=== PATIENT | male | born 1960 | race Caucasian/White ===

== ENCOUNTER 2019-09-03 15:22 | Emergency (ER) | payer MEDICARE, MEDICAID ==
[~2019-09-03] VITALS: Ht 177.8 cm; Wt 103.0 kg
== END 2019-09-03 16:13 | disposition home or self-care (01) ==
LOC: ER 15:23
DX: S92.515A Nondisplaced fracture of proximal phalanx of left lesser toe(s), initial encounter for closed fracture (principal); Z88.1 Allergy status to other antibiotic agents; W22.8XXA Striking against or struck by other objects, initial encounter; Y93.01 Activity, walking, marching and hiking; Y92.89 Other specified places as the place of occurrence of the external cause; Y99.9 Unspecified external cause status
CPT/HCPCS: 73660; 99283

== ENCOUNTER 2020-01-20 14:39 | Emergency (ER) | payer MEDICARE, MEDICAID | END 2020-01-20 17:12 | disposition home or self-care (01) | LOC: ER 14:39 | DX: J06.9 Acute upper respiratory infection, unspecified (principal); R05 Cough; Z88.1 Allergy status to other antibiotic agents | CPT/HCPCS: 99281 ==

== ENCOUNTER 2022-05-18 02:48 | Inpatient (IN) | payer MEDICARE, MEDICAID ==
[~2022-05-18] VITALS: Ht 180.3 cm; Wt 74.3 kg
[~2022-05-18 02:48] MED LIST: CARB200T8 PO; CHOL20002 PO; DABI75CA3 PO; DOCU-148 PO; FLUO-1 PO; ZIPR80CA10 PO
[2022-05-18] MEDS ORDERED: acetaminophen 325mg tablet PO PRN ×2 (09:30)
[2022-05-18] MEDS ORDERED: mag hydrox/Alum hydrox/simeth 30ml oral suspension PO PRN (09:30)
[2022-05-18] MEDS ORDERED: loperamide 2mg capsule PO PRN (09:30)
[2022-05-18] MEDS ORDERED: magnesium hydroxide 30ml (MOM) UD suspension PO PRN (09:30)
--- NOTE | 2022-05-18 09:57 | NUR ---
Admission note: Pt admitted today on 5150 for DTS/GD from [facility] at 0911. Pt endorses SI daily with a plan to crash his vehicle. Pt hasn't eaten in 24 hours or slept in 32 hours. Pt has history of Bipolar. Pt states he has weaned himself off of his medications.
[2022-05-18 10:11] VITALS: BP 161/89
[2022-05-18] MEDS ORDERED: NO HOME MEDS (12:28)
[2022-05-18 19:10] VITALS: BP 136/76
--- NOTE | 2022-05-19 05:12 | NUR ---
Nursing Progress Note Problem: Pt admitted today on 5150 for DTS/GD from [facility] at 0911. Pt endorses SI daily with a plan to crash his vehicle. Pt hasn't eaten in 24 hours or slept in 32 hours. Patient has a history of bipolar. Patient states he has weaned himself off his medications. Intervention: Maintained a safe and supportive environment, administered scheduled and PRN medications. Provided clear and simple instructions, encouraged going to group, provided active listening and positive encouragement, encouraged participation on the unit, provided redirection and clear boundaries. Response: Patient was received sitting in chair in room talking to himself. Nurse took patients vitals and patient asked how long he was going to be here. Patient got up to participate in snack and returned to room. Patient later got up asking for pen and paper stating he needed something to do tonight since he will be up for the next 18 hrs. Patient began walking around unit holding hands talking with another patient until disappearing back into his room. Plan: Pt. requires crisis stabilization. pt. continues to require a safe and supportive environment
[2022-05-19 08:00] VITALS: BP 115/68
[2022-05-19 09:04] LABS: CHOL/HDL RATIO 4.2 (0.00-4.99); CHOLESTEROL 169 MG/DL (0-200); HDL CHOLESTEROL 40 MG/DL (35-60); LDL CHOLESTEROL 104 MG/DL (50-100); TRIGLYCERIDES 104 MG/DL (20-135)
[2022-05-19 09:34] LABS: HEMOGLOBIN A1C 5.4 % (4.5-6.2)
--- NOTE | 2022-05-19 13:42 | NUR ---
PSYCHOSOCIAL ASSESSMENT Pt. is a 62 year old male who was placed on a 5150 by [facility] for DTS and brought to the [facility] ED. The 5150 indicated that his therapist recommended he check in because he had suicidal thoughts with a plan to crash his vehicle if he didn't get help. Robert has a history of Bipolar D/O and has been off his meds since March 18, 2022. He reported that his psychiatrist at [facility] recommended he go off medications. Since stopping meds he has lost significant weight and isn't sleeping well. He presented as hyper verbal, minimal eye contact, friendly, respectful, and possible grandiose delusions. Pt reported today that he lives with his ex- and her son Alber who is 30 years old. He reported that he was to her for over 20 years. He has been staying on her couch but he does not think he can go back to her home. She has become fearful of him after his recent episode. He reported that they are going to go their separate ways at this point so he not sure where he will go after [facility]. Pt. does not want her to be contacted at this point. Pt. reported that he has attempted suicide in the past, the most recent time was 1.5 years ago after an argument with Rosita. When asked today if he was suicidal he stated, I have a plan now. I am going to write a memoir and at the end of the book I will add a sentence about where my body is. Pt. has a therapist (Inna Don) in the community and goes to [facility] for outpatient mental health treatment. He confirmed he has been off his medications for a while. MSE Pt. appeared a bit disheveled in hospital scrubs. His demeanor is pleasant and compliant. His thought content appeared a bit grandiose and this thought process was circumstantial but he was amenable to redirection. He was alert and oriented X 4. His demeanor would become a bit agitated when describing what led him to come into [facility] as he was describing how he was feeling very irritable. He would move back to being more pleasant and compliant when he was done. He also showed insight into his mental health during these explanations. An example of this was when he stated, I threw things because when I throw things it allows me to release the tension in me and return to a more calm state. He demonstrated rapid pressured speech. Nicole Roberts, CANCER REGISTRY COORDINATOR
--- NOTE | 2022-05-19 16:45 | NUR ---
Nursing Progress Note Problem: Pt admitted on 5150 for DTS/GD from [facility] at 0911. Pt endorses SI daily with a plan to crash his vehicle. Patient is irritable due to not getting on his previous medication. Patient has not slept except for 2.5 hours yesterday morning. Intervention: Maintained a safe and supportive environment, administered scheduled and PRN medications. Provided clear and simple instructions, encouraged going to group, provided active listening and positive encouragement, encouraged participation on the unit, provided redirection and clear boundaries. Response: Patient was sitting in his room not socializing with peers. RN sat down and asked patient how he was doing. Patient got upset and said "I'm irritated because I have had to repeat my story twice today already. RN advised patient that he doesn't have to tell her his story and RN was asking how he was doing. Patient relaxed and.....started telling RN his story. Patient did speak with Dr Aguilar this morning and patient expects to be on his medications by tonight. Patient was pleasant by the time RN left. Plan: Pt. requires crisis stabilization. pt. continues to require a safe and supportive environment. And pharmacological intervention.
[2022-05-19 19:46] VITALS: BP 132/92
[2022-05-19] MEDS ORDERED: temazepam 15mg capsule PO ONE (20:05)
[2022-05-19] MEDS ORDERED: ziprasidone 20mg capsule PO ONE (21:20)
[2022-05-19] MEDS ORDERED: carBAMazepine 100mg chewable tablet PO ONE (21:20)
--- NOTE | 2022-05-20 01:09 | NUR ---
Nursing Progress Note Problem: Pt admitted on 5150 for DTS/GD from [facility] at 0911. Pt endorses SI daily with a plan to crash his vehicle. Patient is irritable due to not getting on his previous medication. Patient has not slept except for 2.5 hours yesterday morning. Intervention: Maintained a safe and supportive environment, administered scheduled and PRN medications. Provided clear and simple instructions, encouraged going to group, provided active listening and positive encouragement, encouraged participation on the unit, provided redirection and clear boundaries. Response: Pt in room at shift change. The pt had Trazodone listed as an evening med, to which the pt stated that he doesn't take Trazodone due to the side effects. Restoril was then ordered for the pt , to which the pt stated that he wouldn't take Restoril due to the side effects such as amnesia listed on [email or web address]. the pt then stated that he was going to write a book about his life to get back at his mother. The pt reports that this is better then killing her and this is how he will get his revenge. The pt then stated that his step dad worked in [employer] and he would make an "exclusive " book available on [employer] to shame them all, as it was his life mission to hurt his mother and ruin her life as much as she had hurt his. The pt eventually calmed down and an order for Geodon and Tegretol were available, which the pt reports to have taken earlier before he had quit taking his meds. The pt then combined pacing in the wade and sitting in a chair in his room for most of the night. Plan: Pt. requires crisis stabilization. pt. continues to require a safe and supportive environment. And pharmacological intervention.
[2022-05-20] MEDS: ziprasidone 20mg capsule PO SCH ×2 (08:10→20:05)
[2022-05-20] MEDS: carBAMazepine 100mg chewable tablet PO SCH ×2 (08:11→20:06)
[2022-05-20 08:25] VITALS: BP 112/78
--- NOTE | 2022-05-20 17:39 | NUR ---
Nursing Progress Note Problem: Pt admitted on 5150 for DTS/GD from [facility] at 0911. Pt endorses SI daily with a plan to crash his vehicle. Patient is irritable due to not getting on his previous medication. Patient has not slept except for 2.5 hours yesterday morning. Intervention: Maintained a safe and supportive environment, administered scheduled and PRN medications. Provided clear and simple instructions, encouraged going to group, provided active listening and positive encouragement, encouraged participation on the unit, provided redirection and clear boundaries. Response: Pt sleeping at change of shift. Pt isolates to room either in bed or sitting in his chair. Pt complains of R finger pain issues. PT states he drops things with that hand. Pt explains he punches lots of things with this hand and probably has chronic injury. Pt denied wanting tylenol for this. Plan: Pt. requires crisis stabilization. pt. continues to require a safe and supportive environment. And pharmacological intervention.
[2022-05-20 19:30] VITALS: BP 115/83
--- NOTE | 2022-05-21 00:49 | NUR ---
Nursing Progress Note Problem: Pt admitted on 5150 for DTS/GD from [facility] at 0911. Pt endorses SI daily with a plan to crash his vehicle. Patient is irritable due to not getting on his previous medication. Patient has not slept except for 2.5 hours yesterday morning. Intervention: Maintained a safe and supportive environment, administered scheduled and PRN medications. Provided clear and simple instructions, encouraged going to group, provided active listening and positive encouragement, encouraged participation on the unit, provided redirection and clear boundaries. Response: Pt was sitting in chair writing at shift change. Pt reports that he is able to sleep now that he has his meds. Pt still working on his book about his mother. 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 Pt ate snack at snack time by himself in community room. Pt took evening meds w/o complications. Pt stayed up for a short amount of time and went to sleep. Plan: Pt. requires crisis stabilization. pt. continues to require a safe and supportive environment. And pharmacological intervention.
[2022-05-21] MEDS: carBAMazepine 100mg chewable tablet PO SCH ×2 (07:54→20:02)
[2022-05-21] MEDS: ziprasidone 20mg capsule PO SCH ×2 (07:54→20:02)
[2022-05-21 08:00] VITALS: BP 115/74
--- NOTE | 2022-05-21 14:26 | NUR ---
Nursing Progress Note Problem: Pt admitted on 5150 for DTS/GD from [facility] at 0911. Pt endorses SI daily with a plan to crash his vehicle. Pt states he wants to kill his mother. Patient stopped taking medication. Intervention: Maintained a safe and supportive environment, administered scheduled and PRN medications. Provided clear and simple instructions, encouraged going to group, provided active listening and positive encouragement, encouraged participation on the unit, provided redirection and clear boundaries. Response: Received Pt in bed resting w/o distress at change of shift. Pt woke and cooperative with vitals meds and AM assessments. Pt ate meals well and seen in halls walking at times. Pleasant and cooperative in conversation. He reports not feeling violent toward mother anymore and still angry and wants to write a book about what she did. Pt seems to be handling news that is leaving with intent to focus on God and other supports. He is looking forward to getting back to buddhism where he has supports. Pt calm and isolative to room mostly, but interactive when engaged. Plan: Pt. requires crisis stabilization. pt. continues to require a safe and supportive environment. And pharmacological intervention.
[2022-05-21 19:44] VITALS: BP 147/78
--- NOTE | 2022-05-21 22:47 | NUR ---
Nursing Progress Note Problem: Pt admitted on 5150 for DTS/GD from [facility] at 0911. Pt endorses SI daily with a plan to crash his vehicle. Pt states he wants to kill his mother. Patient stopped taking medication. Intervention: Maintained a safe and supportive environment, administered scheduled and PRN medications. Provided clear and simple instructions, encouraged going to group, provided active listening and positive encouragement, encouraged participation on the unit, provided redirection and clear boundaries. Response: Received Pt in his room talking with his roommate. Pt remains pleasant to speak with and spoke of understanding that he can be scary to be around when angry. Pt did some writing, took HS meds and had snack. Pt read in room and went to sleep. Pt is glad to be here and getting help. Pt denies SI and HI. Plan: Pt. requires crisis stabilization. pt. continues to require a safe and supportive environment. And pharmacological intervention.
--- NOTE | 2022-05-22 07:16 | NUR ---
Initial: Pt admitted w/ bipolar disorder per EMR. Currently on Regular diet w/ mostly 100% intake of meals meeting needs at this time. [facility] 05/20 w/ PRN bowel care available. No nutrition intervention implemented at this time, will continue to monitor. Recs: 1. Continue Regular diet as tolerated 2. Bowel care per rx 3. weekly wts Addendum: 05/22/22 at [address] Amended: Links added.
[2022-05-22 08:00] VITALS: BP 117/64
[2022-05-22] MEDS: ziprasidone 20mg capsule PO SCH ×2 (08:05→20:16)
[2022-05-22] MEDS: carBAMazepine 100mg chewable tablet PO SCH ×2 (08:06→20:17)
--- NOTE | 2022-05-22 14:34 | NUR ---
[address]
--- NOTE | 2022-05-22 18:00 | NUR ---
Nursing Progress Note Problem: Pt admitted on 05/18/22 to [facility], for a 5150 for DTS/GD from [facility]. Pt endorses SI daily with a plan to crash his vehicle. Patient is irritable due to not getting back on his previous medication regime. Patient has a history of Bipolar, and has weaned himself off of all of his prescribed medications. Interventions: Patient was received while sitting in the Community Room coloring pictures with peers. Patient is very talkative and appears very comfortable in sharing stories with the peers who are coloring with him. Patient took medications without hesitation, and reported that he had been off his medications for quite some time before coming here. He reported [employer] came to his home and he states he was already getting ready to go to [facility] to check in as he and his S.O. were having a heated discussion. Patient denies SI, and reports he did make an attempt at Suicide a few years back, but for right now I wouldnt think of it. Patient made no mention about the reported anger he has towards his mother. Response: Patient has been calm and pleasant today. Denies SI and reports he has no plan. Patient has been very interactive with his peers, and talkative with this technical proposal writer. Patient attended and participated in the Group Meeting today. Patient has taken brief rest periods in his room that are approximately 15 minutes long. Plan: Pt. requires crisis stabilization. Patient continues to require a safe and supportive environment. Patient requires medication adjustments as determined by his MD.
[2022-05-22 20:00] VITALS: BP 162/80
--- NOTE | 2022-05-23 03:18 | NUR ---
Nursing Progress Note Problem: Pt admitted on 5150 for DTS/GD from [facility] at 0911. Pt endorses SI daily with a plan to crash his vehicle. Pt states he wants to kill his mother. Patient stopped taking medication. Intervention: Maintained a safe and supportive environment, administered scheduled and PRN medications. Provided clear and simple instructions, encouraged going to group, provided active listening and positive encouragement, encouraged participation on the unit, provided redirection and clear boundaries. Response: Pt was in his room at change of shift. Pt denies si/hi. Pt reports he can't sleep but doesnt want prns because 'trazodone doesnt work for him and other medicines tried cause amnesia" Pt is pleasant cooperative and seem to get along well with peer.s. Pt spent time working on notes, had a snack and did not want sleeping meds despite encouragement and education provided by staff. Pt requested a shower late at night and took one. Pt takes short naps in bed but is not sleeping. Plan: Pt. requires crisis stabilization. pt. continues to require a safe and supportive environment. And pharmacological intervention.
[2022-05-23 08:00] VITALS: BP 138/66
[2022-05-23] MEDS ORDERED: ziprasidone 20mg capsule PO SCH (08:00)
[2022-05-23] MEDS: ziprasidone 20mg capsule PO SCH ×2 (08:41→21:11)
[2022-05-23] MEDS: carBAMazepine 100mg chewable tablet PO SCH ×2 (08:41→20:11)
--- NOTE | 2022-05-23 16:58 | NUR ---
Nursing Progress Note Problem: Pt admitted on 05/18/22 to [facility], for a 5150 for DTS/GD from [facility]. Pt endorses SI daily with a plan to crash his vehicle. Patient is irritable due to not getting back on his previous medication regime. Patient has a history of Bipolar, and has weaned himself off of all of his prescribed medications. Interventions: Patient was awake ambulating in the hallways despite 3 hours of sleep last night. Patient speaking to peers in the hallway then returned to his room as his pulse initially read at about 111, and after lying down went to 88 bpm. Patient took a brief nap in the morning (1 hour), then spent the afternoon coloring in books and wearing headphones while ambulating in the hallway. Response: Patient reports he has had a good day. Medication changes that were ordered by Dr. Aguilar today were to increase his Geodon from 40mg po qam to 60 mg at 0800. Patient received the 60mg of Geodon at 0800 along with his Tegretol. Plan: Pt. requires crisis stabilization. Patient continues to require a safe and supportive environment. Patient requires medication adjustments as determined by his MD.
[2022-05-23 19:34] VITALS: BP 138/81
[2022-05-23] MEDS: traZODone 50mg tablet PO PRN ×2 (21:12→23:30)
--- NOTE | 2022-05-23 22:10 | NUR ---
Nursing Progress Note Problem: Pt admitted on 05/18/22 to [facility], for a 5150 for DTS/GD from [facility]. Pt endorses SI daily with a plan to crash his vehicle. Patient is irritable due to not getting back on his previous medication regime. Patient has a history of Bipolar, and has weaned himself off of all of his prescribed medications. Interventions: Pt was in his room at change of shift. He denies s/i, but then makes passive s/i comments during the evening "You can see now, why I shouldve killed myself." Asked pt what he means? and he does an odd hand gesture towards himself but says nothing. Pt was noticed on the camera blocking the path of a female patient that had been pacing in the wade. When she attempted to go around him he stepped in front of her again before letting her pass. Female pt tucked her arms in close to herself and turned sideways to get around him. Pt is very friendly with peers but was noticed to be touching some of them and redirected. Pt was given HS med and took it standing in the hallway. Pt then requested prn for sleep and was provided w/meds. He states he can only take meds "one at a time and sitting down." Pt immediately sat on the floor and began taking meds. He displayed great difficulty in swallowing each pill and briefly choking w each pill he took, before finally clearing his throat. Pt got up from the floor and went to bed. Response: Pt spent evening in his room drawing and writing notes. Comes out of his room occasionally to briefly interact with other patients and for HS snack. Pt took meds and went to bed. Plan: Pt. requires crisis stabilization. Patient continues to require a safe and supportive environment. Patient requires medication adjustments as determined by his MD.
[2022-05-24 07:33] VITALS: BP 114/67
[2022-05-24] MEDS: ziprasidone 20mg capsule PO SCH ×2 (07:55→20:31)
[2022-05-24] MEDS: carBAMazepine 100mg chewable tablet PO SCH ×2 (07:55→20:32)
--- NOTE | 2022-05-24 15:49 | NUR ---
Nursing Progress Note: Robert Problem: Pt admitted on 5150 for DTS/GD from [facility] at 0911. Pt endorses SI daily with a plan to crash his vehicle. Pt states he wants to kill his mother. Patient stopped taking medication. Today pt. reports needing to be alone and on a different path today Intervention: Maintained a safe and supportive environment, administered scheduled and PRN medications. Provided clear and simple instructions, encouraged going to group, provided active listening and positive encouragement, encouraged participation on the unit, provided redirection and clear boundaries. Response: Pt denies SI, HI , A/VH he reports his DC plan is to buy a van or a truck to live out of he discussed at length his family stressors and his longtime partner is moving on resulting in financial strain to keep his apartment. Pt. reported feeling upset after talking to my Mom yesterday, she just puts me down Pt. remained in his room most of the shift, but did eat his meals in the main dining room with cohorts, but kept to himself. Plan: Pt. requires crisis stabilization. pt. continues to require a safe and supportive environment. And pharmacological intervention.
[2022-05-24 19:31] VITALS: BP 135/86
[2022-05-24] MEDS: traZODone 50mg tablet PO PRN (20:32)
--- NOTE | 2022-05-24 20:56 | NUR ---
Nursing Progress Note: Robert Problem: Pt admitted on 5150 for DTS/GD from [facility] at 0911. Pt endorses SI daily with a plan to crash his vehicle. Pt states he wants to kill his mother. Patient stopped taking medication. Today pt. reports needing to be alone and on a different path today Intervention: Maintained a safe and supportive environment, administered scheduled and PRN medications. Provided clear and simple instructions, encouraged going to group, provided active listening and positive encouragement, encouraged participation on the unit, provided redirection and clear boundaries. Response: Pt was in his room at change of shift writing. Pt denies s/i, denies a/vh. Pt took p/c from his SO and spent time socializing with peers. Pt has questions about medications and was provided with education regarding trazodone. Pt was concerned that he wont sleep with only 100 mg. Pt has trouble taking pills and states he needs to take one pill at a time, c/o the taste of the pills. Explained to pt if he has trouble sleeping we can contact the provider. Pt took HS meds and prn trazodone and went to bed. Plan: Pt. requires crisis stabilization. pt. continues to require a safe and supportive environment. And pharmacological intervention.
[2022-05-25] MEDS: ziprasidone 20mg capsule PO SCH ×2 (07:29→20:42)
[2022-05-25] MEDS: carBAMazepine 100mg chewable tablet PO SCH ×2 (07:30→20:39)
[2022-05-25 08:46] VITALS: BP 136/93
[2022-05-25] MEDS ORDERED: carBAMazepine 100mg chewable tablet PO ONE (14:10)
[2022-05-25] MEDS ORDERED: ziprasidone 20mg capsule PO ONE (14:10)
[2022-05-25] MEDS ORDERED: cloNIDine 0.1 mg tablet PO ONE (15:10)
--- NOTE | 2022-05-25 16:29 | NUR ---
Nursing Progress Note: Robert Problem: Pt admitted on 5150 for DTS/GD from [facility] at 0911. Pt endorses SI daily with a plan to crash his vehicle. Pt states he wants to kill his mother. Patient stopped taking medication. Today pt. had an agitated event in his room throwing papers around and cursing loudly. Intervention: Marketing Intern continues to provide pt. with a safe and therapeutic environment, clear communication, active listening and positive encouragement. Pt. encouraged to participate on unit and in group therapy, and 1:1 assessment provided, and medication administration with 3 one time doses. Response: Pt denies SI, HI , A/VH he reports his DC plan are unchanged, but he is contemplating allot. Pt. reports he feels rested remained in his room most of the shift. He is hyper verbal when engaged but self isolates. Pt. had an episode of extreme agitation and loud cursing outburst. He reported he was irritated because his papers were sliding to the left and right while writing. Provider notified; one time dose of Geodon, Carbamazepine, and Clonidine ordered. Pt. ate a few meals in the dining room with cohorts and socialized with roommate. Plan: Pt. requires crisis stabilization. pt. continues to require a safe and supportive environment. And pharmacological intervention.
[2022-05-25 19:00] VITALS: BP 107/66
--- NOTE | 2022-05-25 23:58 | NUR ---
Nursing Progress Note: Problem: Pt admitted on 5150 for DTS/GD from [facility] at 0911. Pt endorses SI daily with a plan to crash his vehicle. Pt states he wants to kill his mother. Patient stopped taking medication. Intervention: Maintained a safe and supportive environment, administered scheduled medications. Provided clear and simple instructions, encouraged going to group, provided active listening and positive encouragement, encouraged participation on the unit, provided redirection and clear boundaries. Response: Pt mainly isolated to his room this shift aside from coming out to requests water. He is cooperative with 1:1 assessment and denies all mental health symptoms. PT inquires about his HS doses of Tegretol and SURY Tong went over dosage and pt verbalized understanding. He says he feels some anxiety but believes the increased dosage of his medications will help with this. There were no outbursts this shift. Plan: Pt. requires crisis stabilization. pt. continues to require a safe and supportive environment. And pharmacological intervention.
[2022-05-26] MEDS: ziprasidone 20mg capsule PO SCH ×2 (07:26→20:24)
[2022-05-26] MEDS: carBAMazepine 100mg chewable tablet PO SCH ×2 (07:26→20:23)
[2022-05-26 08:10] VITALS: BP 119/72
--- NOTE | 2022-05-26 16:13 | NUR ---
Nursing Progress Note: Robert Problem: Pt admitted on 5150 for DTS/GD from [facility] at 0911. Pt endorses SI daily with a plan to crash his vehicle. Pt states he wants to kill his mother. Patient stopped taking medication. Today pt. had an agitated event in his room throwing papers around and cursing loudly. Intervention: Building Tech continues to provide pt. with a safe and therapeutic environment, clear communication, active listening and positive encouragement. Pt. encouraged to participate on unit and in group therapy, and 1:1 assessment provided and medication administration. Response: Pt denies SI, HI, A/VH he reports can become irritable quickly and could blow when it come Pt. spent allot of time studying the bible and writing down several pages. Pt. reports feeling rested today and engaged process description writer in communication at length. He is disheveled and wearing unit scrubs. Pt. ate all meals in the dining room with cohorts and socialized minimally. Plan: Pt. requires crisis stabilization. pt. continues to require a safe and supportive environment. And pharmacological intervention.
[2022-05-26] MEDS: cloNIDine 0.1 mg tablet PO PRN (17:16)
[2022-05-26 19:32] VITALS: BP 116/65
--- NOTE | 2022-05-27 01:16 | NUR ---
Nursing Progress Note: Robert Problem: Pt admitted on 5150 for DTS/GD from [facility] at 0911. Pt endorses SI daily with a plan to crash his vehicle. Pt states he wants to kill his mother. Patient stopped taking medication. Today pt. had an agitated event in his room throwing papers around and cursing loudly. Intervention: Fixture Maker continues to provide pt. with a safe and therapeutic environment, clear communication, active listening and positive encouragement. Pt. encouraged to participate on unit and in group therapy, and 1:1 assessment provided and medication administration. Response: Pt in his room sitting reading the bible. Pt denies SI, HI, A/VH. Pt states he had a dream last night and it was quite discomforting to him regarding a fire in [place]. Pt cooperative with care, up for snacks and took HS medications without issue. Pt isolated to room after snacks and continued to read the bible. Plan: Pt. requires crisis stabilization. pt. continues to require a safe and supportive environment. And pharmacological intervention.
--- NOTE | 2022-05-27 02:34 | NUR ---
Sleeping Note: Pt has been awake off and on since 14, refuses trazadone.
[2022-05-27 07:46] VITALS: BP 129/74
[2022-05-27] MEDS: ziprasidone 20mg capsule PO SCH ×2 (08:54→21:06)
[2022-05-27] MEDS: cetirizine 10mg tablet PO SCH (08:54)
[2022-05-27] MEDS: carBAMazepine 100mg chewable tablet PO SCH ×2 (08:54→21:06)
[2022-05-27] MEDS: cloNIDine 0.1 mg tablet PO PRN (09:49)
--- NOTE | 2022-05-27 15:58 | NUR ---
Nursing Progress Note: Problem : Pt admitted on 5150 for DTS/GD from [facility]. Pt endorses SI daily with a plan to crash his vehicle. Pt states he wants to kill his mother. Patient stopped taking his medication. Pt. currently presents with hypomania and intermittent episodes of agitation and emotional lability. Interventions : Introduced self and established rapport, ensured contract for safety, maintained a safe and supportive environment, provided clear and simple instructions, provided active listening and positive encouragement, and maintained Q 15min safety checks. Response : Received pt. up in the hallway at the beginning of the shift, upon seeing staff he asked to talk with this policy writer typist in private. Pt. reports he was unable to sleep last night r/t his roommate turning on the lights and intermittently coming to his side of the room to go through his belongings. Pt. states, "I'm a nervous person already and he's making it worse! I don't want to loose my cool." This was endorsed to the charge nurse and a room change is planned. He attended breakfast in the Group Room and afterwards 1:1 was completed at bedside. Pt. presents as hypomanic, restless, and becomes agitated at intervals. He reports some ongoing S/I, but denies any current plan. When questioned regarding H/I, pt. states, "I have fleeting thoughts at times. I'm just angry at the world and mankind because everyone is so selfish!" Pt. continues on in a hyperverbal and tangental manner to talk at length about family issues, how he came to be admitted to the hospital, and his history of mental health. He becomes agitated at intervals and raises his voice, using multiple profanities, but is able to self redirect and calm himself back down. Pt. requests PRN Catapres, and medication was administered with effectiveness. Pt. also appears to make what appear to be grandiose delusional statements at intervals regarding how he has researched all of his medications and mental health conditions and believes the doctors to be wrong. Pt. remains in his room throughout much of the day sleeping, reading the Bible, and writing. Plan : Pt. continues to require medication adjustments and a safe and supportive environment.
[2022-05-27 19:48] VITALS: BP 126/74
[2022-05-27] MEDS: traZODone 50mg tablet PO PRN (21:07)
[2022-05-28] MEDS: diphenhydrAMINE 25mg capsule PO PRN (00:20)
--- NOTE | 2022-05-28 02:45 | NUR ---
Nursing Progress Note: Problem : Pt admitted on 5150 for DTS/GD from [facility]. Pt endorses SI daily with a plan to crash his vehicle. Pt states he wants to kill his mother. Patient stopped taking his medication. Pt. currently presents with hypomania and intermittent episodes of agitation and emotional lability. Interventions : Introduced self and established rapport, ensured contract for safety, maintained a safe and supportive environment, provided clear and simple instructions, provided active listening and positive encouragement, and maintained Q 15min safety checks. Response : Pt up in group room at start of shift. He is pleasant and cooperative. Pt says he is not planning suicide but has fleeting thoughts about killing himself. Pt is concerned about not being able to sleep. Last NOC sleep assessment was 1.5 hours. Plan made with pt to take Trazodone with HS meds and if not effective contact sharepoint solutions architect MD for further orders. Pt slept only 2 hours after Trazodone. New order for 50mg Benadryl given Pt has been asleep for a total of 4 hours at this time. will continue to monitor. Plan : Pt. continues to require medication adjustments and a safe and supportive environment.
[2022-05-28 08:00] VITALS: BP 107/74
[2022-05-28] MEDS: cetirizine 10mg tablet PO SCH (08:02)
[2022-05-28] MEDS: ziprasidone 20mg capsule PO SCH ×2 (08:03→20:38)
[2022-05-28] MEDS: carBAMazepine 100mg chewable tablet PO SCH ×2 (08:09→20:38)
--- NOTE | 2022-05-28 16:52 | NUR ---
Nursing Progress Note Problem: Pt admitted on 05/18/22 to [facility], for a 5150 for DTS/GD from [facility]. Pt endorses SI daily with a plan to crash his vehicle. Patient is irritable due to not getting back on his previous medication regime. Patient has a history of Bipolar, and has weaned himself off of all of his prescribed medications. Interventions: Received patient at 0625. Entered patients room and asked him how his night went and he stated Ying been really awful. I cant sleep at night, then I cause problems. Patient was awake all day, using the phone to call family members and just sitting alongside his bed reading. Response: Patient has been awake all day. Took medications without hesitation. Appetite fair today. Calm and cooperative throughout this shift. Plan: Pt. requires crisis stabilization. Patient continues to require a safe and supportive environment. Patient requires medication adjustments as determined by his MD.
[2022-05-28 19:34] VITALS: BP 125/77
[2022-05-28] MEDS: cloNIDine 0.1 mg tablet PO PRN (23:11)
--- NOTE | 2022-05-29 01:13 | NUR ---
Nursing Progress Note: Problem : Pt admitted on 5150 for DTS/GD from [facility]. Pt endorses SI daily with a plan to crash his vehicle. Pt states he wants to kill his mother. Patient stopped taking his medication. Pt. currently presents with hypomania and intermittent episodes of agitation and emotional lability. Interventions : Introduced self and established rapport, ensured contract for safety, maintained a safe and supportive environment, provided clear and simple instructions, provided active listening and positive encouragement, and maintained Q 15min safety checks. Response : Pt spends most of the night in his room, listening to headphones and writing in a notebook. He shows RN some of his papers, including a list of staff by name he has come into contact with since being here, a thank you letter to the hospital, and a website plan. Everyone here has been so great, I just want them to get some recognition. He also takes out his bible and reads a few passages. He states he feels like he has improved a lot since he got here, and his perspectives have been greatly changed, especially thanks to Dr. Wilson and some of their conversations. He denies SI/HI/AH/VH at this time. He utilizes PRN trazodone for sleep and clonidine for anxiety. Plan : Pt. continues to require medication adjustments and a safe and supportive environment.
--- NOTE | 2022-05-29 07:13 | NUR ---
Reassessment: Pt continues on Regular diet w/ mostly 75-100% intake of meals meeting needs at this time. [facility] 05/28 w/ PRN bowel care available. No nutrition intervention implemented at this time, will continue to monitor. Recs: 1. Continue Regular diet as tolerated 2. Bowel care per rx 3. weekly wts Addendum: 05/29/22 at [address] Amended: Links added.
[2022-05-29 08:00] VITALS: BP 142/76
[2022-05-29] MEDS: cetirizine 10mg tablet PO SCH (08:02)
[2022-05-29] MEDS: ziprasidone 20mg capsule PO SCH ×2 (08:02→20:34)
[2022-05-29] MEDS: carBAMazepine 100mg chewable tablet PO SCH ×2 (08:02→20:34)
--- NOTE | 2022-05-29 10:33 | NUR ---
Pt attended group today. We talked about Self Nurturing about how to curate spaces of nurture/self-care for themselves. We then did Vision board visualizing safe/nurture places and words. Pt. engaged well in the group. He was able to interact well with the information and shared his own spaces and places he feels nurtured easily with the group. He communicates well and shows insight into his own mental health issues. His mood is good with a restricted affect. He is alert and oriented X 4. His thought content and thought process were WNL. He appeared to enjoy socializing in the group and he responds empathetically to his peers in the group. His demeanor is calm and compliant. He was able to pick out pictures he identified as safe and was able to share appropriately why he felt they good to him. Nicole Roberts LCSW
--- NOTE | 2022-05-29 12:28 | NUR ---
Inquired with [facility] to see if there are any male beds as an option for Robert. They will not have any male beds for a couple weeks. COURTNEY Jewell
--- NOTE | 2022-05-29 14:42 | NUR ---
DISCHARGE PLANNING Met with Robert to discuss discharge plan. Informed him that there will not be any beds at [facility] for a couple weeks. He reported he can go to the [facility]. He noted his dyed raw stock blower feeder friend visited today and is going to look into some other options for housing. oRbert reported he has been to the [facility] and is comfortable going there. COURTNEY Jewell
--- NOTE | 2022-05-29 17:03 | NUR ---
Nursing Progress Note: Robert Problem: Pt admitted on 5150 for DTS/GD from [facility] at 0911. Pt endorses SI daily with a plan to crash his vehicle. Pt states he wants to kill his mother. Patient stopped taking medication. Intervention: Staff Psychiatrist continues to provide pt. with a safe and therapeutic environment, clear communication, active listening and positive encouragement. Pt. encouraged to participate on unit and in group therapy, and 1:1 assessment provided and medication administration. Q15min checks continue for pt. safety. Response: Pt denies SI, HI, A/VH he presents as upbeat, he is slightly disheveled and wearing unit scrubs with a stain on the front. Pt. reports his DC plans are unknown, he reported I may got to the [facility] if I cant find a bed somewhere, Ying been to the [facility] before he spent most of the day OOB and socializing with cohorts or writing Biblical verses. He ate all meals in the dining room and also attended group today. Plan: Pt. requires crisis stabilization. pt. continues to require a safe and supportive environment. And pharmacological intervention.
[2022-05-29] MEDS: traZODone 50mg tablet PO PRN (20:33)
[2022-05-29] MEDS: cloNIDine 0.1 mg tablet PO SCH (20:38)
[2022-05-29 20:48] VITALS: BP 141/80
[2022-05-29] MEDS: diphenhydrAMINE 25mg capsule PO PRN (23:39)
--- NOTE | 2022-05-30 00:55 | NUR ---
Nursing Progress Note: Robert Problem: Pt admitted on 5150 for DTS/GD from [facility] at 0911. Pt endorses SI daily with a plan to crash his vehicle. Pt states he wants to kill his mother. Patient stopped taking medication. Intervention: Scalp Specialist continues to provide pt. with a safe and therapeutic environment, clear communication, active listening and positive encouragement. Pt. encouraged to participate on unit and in group therapy, and 1:1 assessment provided and medication administration. Q15min checks continue for pt. safety. Response: Pt denies SI, HI, A/VH and states he had a good day. Pt c/o not getting a good night sleep last night. This RN told the pt he had Benadryl he can utilize for sleep. Pt adamant on only taking trazadone. Pt in community room socializing with peers, took all HS medications. At 2340 pt awoke and wanted second dose of trazadone. This RN let the pt know he didnt have a second dose of trazadone but had Benadryl. Pt states Fine, Ill take the Benadryl. Pt back to bed and sleeping as of this writing. Plan: Pt. requires crisis stabilization. pt. continues to require a safe and supportive environment. And pharmacological intervention.
[2022-05-30 07:37] VITALS: BP 115/66
[2022-05-30] MEDS: cetirizine 10mg tablet PO SCH (07:43)
[2022-05-30] MEDS: ziprasidone 20mg capsule PO SCH ×2 (07:43→20:31)
[2022-05-30] MEDS: carBAMazepine 100mg chewable tablet PO SCH ×2 (07:45→20:31)
--- NOTE | 2022-05-30 09:54 | NUR ---
Pt. attended group today. Today with did an Art Expression group called Healing Symbols. The goal was to find strength in their own symbol which can feel empowering. We discussed if anything emerged in their art that surprised them and how they could incorporate their symbol into their day. Pt engaged appropriately in the group today. He shared his thoughts about his Art Expression and was able to pull out what symbols he saw in the artwork. He shared that he felt that this exercise helped him release some things and that felt good to him. He was alert and oriented X 4. His thought content and thought process were WNL. His demeanor was calm and compliant. Nicole Roberts LCSW
--- NOTE | 2022-05-30 16:55 | NUR ---
Nursing Progress Note: Robert Problem: Pt admitted on 5150 for DTS/GD from [facility] at 0911. Pt endorses SI daily with a plan to crash his vehicle. Pt states he wants to kill his mother. Patient stopped taking medication. Intervention: General Store Manager continues to provide pt. with a safe and therapeutic environment, clear communication, active listening and positive encouragement. Pt. encouraged to participate on unit and in group therapy, and 1:1 assessment provided and medication administration. Q15min checks continue for pt. safety. Response: Pt denies SI, HI, A/VH he appears disheveled and wearing a prem shift and unit scrub pants. Pt. 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 Pt. attended group and spent most of his free time writing in a pad from the [employer] both in his room and in the community. Pt. ate all meals in the dining room with cohorts he is often observed sitting with several people and socializing. Pt. did nap for 2 hours today. Plan: Pt. requires crisis stabilization. pt. continues to require a safe and supportive environment. And pharmacological intervention.
[2022-05-30 20:05] VITALS: BP 141/72
[2022-05-30] MEDS: cloNIDine 0.1 mg tablet PO SCH (20:31)
[2022-05-30] MEDS ORDERED: quetiapine 100mg tablet PO SCH (21:00)
[2022-05-30] MEDS ORDERED: QUEtiapine 25mg tablet PO SCH (21:08)
--- NOTE | 2022-05-31 01:33 | NUR ---
Nursing Progress Note: Robert Problem: Pt admitted on 5150 for DTS/GD from [facility] at 0911. Pt endorses SI daily with a plan to crash his vehicle. Pt states he wants to kill his mother. Patient stopped taking medication. Intervention: Supply Chain Project Manager continues to provide pt. with a safe and therapeutic environment, clear communication, active listening and positive encouragement. Pt. encouraged to participate on unit and in group therapy, and 1:1 assessment provided and medication administration. Q15min checks continue for pt. safety. Response: Pt in community room with peers watching TV, states his day was not bad. He states he wanted to take a nap today but didnt in hopes of sleeping better this evening. Pt talked with Dr Aguilar early this morning and new order for Seroquel 50MG HS was given. Pt went into great detail about what a great job staff do here on this unit and he is going to write a letter to the Board. Pt up for snacks and took all HS medication without issue. Plan: Pt. requires crisis stabilization. pt. continues to require a safe and supportive environment. And pharmacological intervention.
[2022-05-31 08:00] VITALS: BP 125/77
[2022-05-31] MEDS: ziprasidone 20mg capsule PO SCH ×2 (08:20→20:03)
[2022-05-31] MEDS: carBAMazepine 100mg chewable tablet PO SCH ×2 (08:20→20:04)
[2022-05-31] MEDS: cetirizine 10mg tablet PO SCH (08:20)
--- NOTE | 2022-05-31 10:00 | NUR ---
Completed and sent [facility] Referral. [facility] currently does not have any male beds available. COURTNEY Jewell
--- NOTE | 2022-05-31 11:12 | NUR ---
Pt. attended group today. The group today was about Anxiety, they were asked to identify the natural and silent triggers they have experienced. The second half of group was about what coping skills we can utilize when we are anxious. This Automobile Radiator Mechanic led a Visualization/Breathing technique called Ride the Panic Wave. Pt. was in and out of the group today. He got called out of the group by the doctor at one point but he did come back by the end of the group. His mood appeared a bit anxious with a full range of affect. His thought content and thought process were WNL. He was pleasant and compliant. His demeanor was calm and compliant. Nicole Roberts LCSW
--- NOTE | 2022-05-31 16:59 | NUR ---
Nursing Progress Note: Robert Problem: Pt admitted on 5150 for DTS/GD from [facility] at 0911. Pt endorses SI daily with a plan to crash his vehicle. Pt states he wants to kill his mother. Patient stopped taking medication. Intervention: Upper Doubler continues to provide pt. with a safe and therapeutic environment, clear communication, active listening and positive encouragement. Pt. encouraged to participate on unit and in group therapy, and 1:1 assessment provided and medication administration. Q15min checks continue for pt. safety. Response: Pt denies SI, HI, A/VH was awake writing from the Bible when public relations writer came on to shift. Pt. presents as disheveled and wearing street clothes. He spent most of the shift in the community room writing and reading. Pt. is interacting with cohorts and socializes at length. Pt. ate all meals in dining room. He takes his meds without hesitancy and napped for 1hr. Plan: Pt. requires crisis stabilization. pt. continues to require a safe and supportive environment. And pharmacological intervention.
[2022-05-31 20:17] VITALS: BP 118/74
[2022-05-31] MEDS ORDERED: QUEtiapine 25mg tablet PO SCH (21:00)
[2022-05-31] MEDS: diphenhydrAMINE 25mg capsule PO PRN (23:15)
--- NOTE | 2022-06-01 00:05 | NUR ---
Nursing Progress Note: Robert Problem: Pt admitted on 5150 for DTS/GD from [facility] at 0911. Pt endorses SI daily with a plan to crash his vehicle. Pt states he wants to kill his mother. Patient stopped taking medication. Intervention: Hair Tinter continues to provide pt. with a safe and therapeutic environment, clear communication, active listening and positive encouragement. Pt. encouraged to participate on unit and in group therapy, and 1:1 assessment provided and medication administration. Q15min checks continue for pt. safety. Response: Pt came up to the nurses station at change of shift stating he was tired and wanted to go to bed and requested his NOC medications. Told pt he would get them at 1999. PT went to lay down in his room. Pt up for snacks and took all HS medications then states I hope I can sleep tonight. Pt to bed shortly after med pass. Pt up at 2315 c/o being woken up by a nightmare (being taken by police). Pt given 50MG PRN Benadryl. Plan: Pt. requires crisis stabilization. pt. continues to require a safe and supportive environment. And pharmacological intervention.
[2022-06-01] MEDS: carBAMazepine 100mg chewable tablet PO SCH ×2 (07:57→20:14)
[2022-06-01] MEDS: cetirizine 10mg tablet PO SCH (07:57)
[2022-06-01] MEDS: ziprasidone 20mg capsule PO SCH ×2 (07:57→20:13)
[2022-06-01 08:00] VITALS: BP 147/80
--- NOTE | 2022-06-01 10:09 | NUR ---
[facility] INTERVIEW 3:30 TODAY Prepped Robert for his [facility] interview today at 3:30 PM. COURTNEY Jewell
[2022-06-01] MEDS ORDERED: cloNIDine 0.1 mg tablet PO ONE (10:40)
--- NOTE | 2022-06-01 15:51 | NUR ---
Nursing Progress Note: Problem: Pt admitted on 5150 for DTS/GD from [facility] at 0911. Pt endorses SI daily with a plan to crash his vehicle. Pt states he wants to kill his mother. Patient stopped taking medication. Intervention: Client Engagement Manager continues to provide pt. with a safe and therapeutic environment, clear communication, active listening and positive encouragement. Pt. encouraged to participate on unit and in group therapy, and 1:1 assessment provided and medication administration. Q15min checks continue for pt. safety. Response: Pt. denies A/VH, S/HI. Pt attended meals and showered this AM. Pt seen wearing facility headphones and in his room writing letters. 1:1 done at bedside. Pt cooperative and medication complaint. Pt. became slightly anxious/agitated after 1:1 from explaining his past experiences/history to nurse. New order for one time PRN clonidine administered with effective results and new order for TID scheduled clonidine obtained from Dr. Aguilar. Plan: Pt. requires crisis stabilization. pt. continues to require a safe and supportive environment. And pharmacological intervention.
[2022-06-01 19:16] VITALS: BP 126/82
[2022-06-01] MEDS: cloNIDine 0.1 mg tablet PO SCH (20:14)
[2022-06-01] MEDS ORDERED: QUEtiapine 25mg tablet PO SCH (21:00)
--- NOTE | 2022-06-02 03:22 | NUR ---
Nursing Progress Note: Problem: Pt admitted on 5150 for DTS/GD from [facility] at 0911. Pt endorses SI daily with a plan to crash his vehicle. Pt states he wants to kill his mother. Patient stopped taking medication. Intervention: Benefits Consultant continues to provide pt. with a safe and therapeutic environment, clear communication, active listening and positive encouragement. Pt. encouraged to participate on unit and in group therapy, and 1:1 assessment provided and medication administration. Q15min checks continue for pt. safety. Response: Patient was received sitting in chair in room reading. Patient was in a positive mood. Patient was socializing wit staff and other patients. Patient comes out of his room to participate in snack and ask about medication changes. Patient was happy clonidine was added. Patient took medications and went to bed. Patient slept for a few hours before getting up and sitting in hallway drawing and listening to music. Patient didn't returned to bed until 3am. Plan: Pt. requires crisis stabilization. pt. continues to require a safe and supportive environment. And pharmacological intervention.
[2022-06-02 08:00] VITALS: BP 130/82
[2022-06-02] MEDS: cloNIDine 0.1 mg tablet PO SCH ×3 (08:25→21:25)
[2022-06-02] MEDS: carBAMazepine 100mg chewable tablet PO SCH ×2 (08:26→21:24)
[2022-06-02] MEDS: ziprasidone 20mg capsule PO SCH ×2 (08:26→21:24)
[2022-06-02] MEDS: cetirizine 10mg tablet PO SCH (08:26)
--- NOTE | 2022-06-02 08:28 | NUR ---
ACCEPTED AT [facility] Robert has been accepted at [facility]. It is unclear when there will be a bed available. COURTNEY Jewell
--- NOTE | 2022-06-02 10:52 | NUR ---
DISCHARGE PLAN Robert has been accepted at [facility] and they will have a bed for him on Sunday AM. Requested meds get sent to [facility] for delivery on Sun. He will need a chest x-ray to rule out TB. He will also need a Covid test done Sunday. Follow up has been scheduled with Dr Aguilar. COURTNEY Jewell
--- NOTE | 2022-06-02 13:32 | NUR ---
Nursing Progress Note: Pt. c/o intermittent constipation. He reports he has been able to go to the bathroom approximately every 3 days here at the hospital, however he usually goes every day at home. Per Dr. Squires, an order for Colace 100mg BID was given.
[2022-06-02 13:34] VITALS: BP 130/85
--- NOTE | 2022-06-02 16:40 | NUR ---
Nursing Progress Note: Problem : Pt admitted on 5150 for DTS/GD from [facility]. Pt endorses SI daily with a plan to crash his vehicle. Pt states he wants to kill his mother. Patient stopped taking his medication. Pt. makes what appear to be paranoid delusional statements this shift. Interventions : Ensured contract for safety, maintained a safe and supportive environment, provided clear and simple instructions, provided active listening and positive encouragement, and maintained Q 15min safety checks. Response : Received pt. sleeping in bed at the beginning of the shift, he attended breakfast in the Group Room, and afterwards was observed to be laying in bed listening to music. 1:1 was completed at bedside, pt. presents as cooperative and pleasant. He denies any S/I, H/I, or A/V/ENRIQUEZ. Pt. states, "I just feel confused sometimes," and reports that he sometimes looses track of time which he already discussed with the doctor this morning. Pt. then goes on to talk about how he is now feeling hopeful for the future. Pt. then makes what appears to be a paranoid delusional statement regarding his belief that there are x-ray machines outside the [place]antos of this unit. He states, "There are surges of power in the santos which are affecting my radio station." However, he appears to be able to reorient himself to reality and reports that he is aware that this cannot be possible. Pt. attends group and is observed to be interacting appropriately with others and reading his Bible throughout the day. Plan : Pt. continues to require medication adjustments and a safe and supportive environment.
[2022-06-02 19:46] VITALS: BP 137/77
[2022-06-02] MEDS: docusate sod 100mg capsule PO SCH (21:23)
[2022-06-02] MEDS: QUEtiapine 25mg tablet PO SCH (21:23)
--- NOTE | 2022-06-03 00:24 | NUR ---
Nursing Progress Note: Problem : Pt admitted on 5150 for DTS/GD from [facility]. Pt endorses SI daily with a plan to crash his vehicle. Pt states he wants to kill his mother. Patient stopped taking his medication. Interventions : Introduced self and established rapport, ensured contract for safety, maintained a safe and supportive environment, provided clear and simple instructions, provided active listening and positive encouragement, and maintained Q 15min safety checks. Response : Pt spends most of the night in his room, writing in a notebook. He is perseverating on papers that he wrote that he had given and not gotten back yet. He wants them back and is worried that he will not get them before he discharges. He denies SI/HI/AH/VH at this time. Pt is started on Seroquel 200mg HS tonight, which he took. Plan : Pt. continues to require medication adjustments and a safe and supportive environment.
[2022-06-03 08:00] VITALS: BP 133/71
[2022-06-03] MEDS: cloNIDine 0.1 mg tablet PO SCH ×3 (08:36→21:20)
[2022-06-03] MEDS: docusate sod 100mg capsule PO SCH ×2 (08:36→21:20)
[2022-06-03] MEDS: cetirizine 10mg tablet PO SCH (08:36)
[2022-06-03] MEDS: carBAMazepine 100mg chewable tablet PO SCH ×2 (08:36→21:20)
[2022-06-03] MEDS: ziprasidone 20mg capsule PO SCH ×2 (08:36→21:20)
--- NOTE | 2022-06-03 12:34 | NUR ---
Nursing Progress Note: Problem : Pt admitted on 5150 for DTS/GD from [facility]. Pt endorses SI daily with a plan to crash his vehicle. Pt states he wants to kill his mother. Patient stopped taking his medication. Pt's thought process remains tangental and he presents with preoccupation regarding various items. Interventions : Ensured contract for safety, maintained a safe and supportive environment, provided clear and simple instructions, provided active listening and positive encouragement, and maintained Q 15min safety checks. Response : Received pt. sleeping in bed at the beginning of the shift, he awoke reporting feeling rested, and it was noted that he slept 7.25 hours which is very good for him. Pt. attended breakfast in the Group Room and 1:1 was completed afterwards. Pt. reports that he is feeling somewhat excited about his upcoming discharge to [facility] on Sunday. He states, "It will give me a chance to establish some structure and routine and I can keep that going when I'm out on my own." Pt. continues to deny any S/I, however reports some ongoing depression and anxiety. He presents with a somewhat tangental thought process and perseverates on events that happened to him in the past which continue to cause him intermittent irritability. Pt. talks in a somewhat hyperverbal way about how he felt, "Unwanted, uncared for, and unloved," by his own mother after she moved a boyfriend in and him out when he was a teenager. Pt. reports this still causes him to harbor anger and lack confidence to this day. Pt. exhibited verbal agitation, but was able to redirect and distract himself. He napped and read intermittently during the day, and was observed to be interacting appropriately with others. Plan : Pt. continues to require a safe and supportive environment. He will discharge Sunday to [facility].
[2022-06-03 13:48] VITALS: BP 120/75
[2022-06-03 19:00] VITALS: BP 124/71
[2022-06-03] MEDS: QUEtiapine 25mg tablet PO SCH (21:21)
--- NOTE | 2022-06-04 02:51 | NUR ---
Nursing Progress Note: Problem : Pt admitted on 5149 for DTS/GD from [facility]. Pt endorses SI daily with a plan to crash his vehicle. Pt states he wants to kill his mother. Patient stopped taking his medication. Pt's thought process remains tangental and he presents with preoccupation regarding various items. Interventions : Ensured contract for safety, maintained a safe and supportive environment, provided clear and simple instructions, provided active listening and positive encouragement, and maintained Q 15min safety checks. Response : Received pt. reading and writing in his room at the beginning of the shift, he greeted this marine underwriter animatedly. 1:1 was completed later at bedside, pt. continues to deny any S/I. When questioned by this marine underwriter regarding any anxiety or depression, pt. states, "My anxiety was good today. I wouldn't say I'm depressed, just uncertain about the future." Pt. continues to report a mix of uncertainty and excitement regarding his upcoming discharged to [facility]. He goes on to tell this marine underwriter how his former will be bringing his car full of all his belongings. Pt continues to presents with somewhat hyperverbal speech and a tangental thought process, however appears much improved. He does not make any delusional statements or exhibit any episodes of irritability this shift. Pt. awakens several times during the night, but is able to return back to sleep. Plan : Pt. continues to require a safe and supportive environment. He will discharge Sunday to [facility].
[2022-06-04 08:00] VITALS: BP 129/74
[2022-06-04] MEDS: ziprasidone 20mg capsule PO SCH ×2 (08:38→20:20)
[2022-06-04] MEDS: cetirizine 10mg tablet PO SCH (08:38)
[2022-06-04] MEDS: docusate sod 100mg capsule PO SCH ×2 (08:38→20:20)
[2022-06-04] MEDS: carBAMazepine 100mg chewable tablet PO SCH ×2 (08:38→20:20)
[2022-06-04] MEDS: cloNIDine 0.1 mg tablet PO SCH ×3 (08:38→20:20)
--- NOTE | 2022-06-04 17:54 | NUR ---
Nursing Progress Note Problem: Pt admitted on 05/18/22 to [facility], for a 5150 for DTS/GD from [facility]. Pt endorses SI daily with a plan to crash his vehicle. Patient is irritable due to not getting back on his previous medication regime. Patient has a history of Bipolar, and has weaned himself off of all of his prescribed medications. Interventions: Patient has been busy today talking on the phone with family/friends, and also writing in his notebook with his door almost closed. Patient pleasant. Ambulating in halls as wanted. Response: Patient has been awake all day. Took medications without hesitation. Appetite fair today. Calm and cooperative throughout this shift. Plan: Pt. requires crisis stabilization. Patient continues to require a safe and supportive environment. Patient requires medication adjustments as determined by his MD.
[2022-06-04 19:24] VITALS: BP 134/69
[2022-06-04] MEDS: QUEtiapine 25mg tablet PO SCH (20:19)
--- NOTE | 2022-06-05 01:06 | NUR ---
Nursing Progress Note Problem: Pt admitted on 5150 for DTS/GD from [facility] at 0911. Pt endorses SI daily with a plan to crash his vehicle. Patient is irritable due to not getting on his previous medication. Patient has not slept except for 2.5 hours yesterday morning. Intervention: Maintained a safe and supportive environment, administered scheduled and PRN medications. Provided clear and simple instructions, encouraged going to group, provided active listening and positive encouragement, encouraged participation on the unit, provided redirection and clear boundaries. Response: Patient in room at shift change. Pt 1:1, pt denies A/V H, H/I. The pt states that he thinks about S/I in passing as fleeting thoughts but has no plans . Pt reports that he he is excited for the future and a little scared to leave the facility. The pt reports that when he first had gotten here he was very angry and resentful but doesn't feel the same anymore. The pt states that he learned a lot with his time here and will miss all of his new friends. The pt ate snack in community room with cohorts. Pt took all meds w/o complications. Plan: Pt. requires crisis stabilization. pt. continues to require a safe and supportive environment. And pharmacological intervention.
[2022-06-05] MEDS ORDERED: DOCU100C40 PO (06:25)
[2022-06-05] MEDS ORDERED: CETI10TA14 PO (06:25)
[2022-06-05] MEDS ORDERED: CLON0.1T2 PO (06:25)
[2022-06-05] MEDS ORDERED: QUET200T31 PO (06:25)
[2022-06-05] MEDS ORDERED: ZIPR20CA12 PO (06:25)
[2022-06-05] MEDS ORDERED: CARB200C7 PO (06:27)
[2022-06-05] MEDS: cloNIDine 0.1 mg tablet PO SCH ×3 (07:54→19:28)
[2022-06-05] MEDS: docusate sod 100mg capsule PO SCH ×2 (07:54→19:28)
[2022-06-05] MEDS: cetirizine 10mg tablet PO SCH (07:55)
[2022-06-05] MEDS: ziprasidone 20mg capsule PO SCH ×2 (07:55→19:28)
[2022-06-05] MEDS: carBAMazepine 100mg chewable tablet PO SCH ×2 (07:55→19:29)
[2022-06-05 08:00] VITALS: BP 134/74
[2022-06-05 08:15] LABS: BASOPHILS # (AUTO) 0.1 X10'3 (0-0.2); BASOPHILS % (AUTO) 0.8 % (0-1); EOSINOPHILS # (AUTO) 0.2 X10'3 (0-0.9); EOSINOPHILS % (AUTO) 2.9 % (0-6); HEMATOCRIT 40.9 % (42.0-52.0); HEMOGLOBIN 13.7 g/dl (14.0-17.9); LYMPHOCYTES # (AUTO) 2.5 X10'3 (1.1-4.8); LYMPHOCYTES % (AUTO) 30.1 % (21-51); MEAN CORPUSCULAR HEMOGLOBIN 30.1 PG (27.0-31.0); MEAN CORPUSCULAR HGB CONC 33.5 g/dL (33.0-36.5); MEAN PLATELET VOLUME 6.9 FL (7.4-10.4); MONOCYTES # (AUTO) 0.8 X10'3 (0-0.9); MONOCYTES % (AUTO) 9.1 % (2-12); NEUTROPHILS # (AUTO) 4.7 X10'3 (1.8-7.7); NEUTROPHILS % (AUTO) 57.1 % (42-75); PLATELET COUNT 270 X10'3 (140-440); RED BLOOD COUNT 4.55 X10'6 (4.70-6.10); RED CELL DISTRIBUTION WIDTH 14.3 % (11.5-14.5); WHITE BLOOD COUNT 8.3 X10'3 (4.5-11.0)
--- NOTE | 2022-06-05 09:26 | NUR ---
-DCP Presenting Issues: Pt's accepted @ [facility] and planned to d/c this morning and transition to [facility]. However, pt's meds were only finalized & sent to pharmacy this morning, pt still needs COVID test and Chest X-ray report needs to be amended as it made no mention of TB status. Interventions: Clinician had t/c w/[id number], per t/c pt will be picked up tomorrow morning to transition to [facility]. Melissa Bruce LCSW Addendum: 06/05/22 at 0929 by Melissa Bruce SS Amended: Links added.
--- NOTE | 2022-06-05 14:57 | NUR ---
[facility]ETA-DCP Per RN, meds were delivered but missing the Tegretol, per chart attending physician did order it. Clinician had t/c [facility]. per t/c the med in question was never sent over to them. Clinician notified Dr. sung, Dr. Sung will resend the order for the missing med. Melissa Bruce SERVICE DESK LEAD Addendum: 06/05/22 at 1458 by Melissa Bruce SS Amended: Links added.
[2022-06-05] MEDS ORDERED: CARB200T PO (15:10)
--- NOTE | 2022-06-05 17:40 | NUR ---
Nursing Progress Note Problem: Pt admitted on 05/18/22 to [facility], for a 5150 for DTS/GD from [facility]. Pt endorses SI daily with a plan to crash his vehicle. Patient is irritable due to not getting back on his previous medication regime. Patient has a history of Bipolar, and has weaned himself off of all of his prescribed medications. Interventions: Patient pleasant. Ambulating in halls as wanted. Collected COVID Vaccine before patient goes to [facility] today or tomorrow. COVID Results negative. Reviewed patients medication that were delivered by [facility]. There were 5 prescriptions delivered and Tegretol was not delivered by [facility]. Informed Melissa, Radio Repairman, who informed this scenario writer that she would call [facility] and let them know that the Tegretol needed to be delivered tomorrow. Explained to patient that the Tegretol was not delivered and he would be discharged to [facility] tomorrow per Melissa. Patient was speaking profanely about multiple staff members to another peer loudly in the hallway about his discontent. Attempted to calm the patient down and he went in to color with another peer. Response: Patient has been awake all day. Took medications without hesitation. Appetite good today. Calm and cooperative throughout this shift. Explained to patient that the Tegretol was not delivered and he would be discharged to [facility] tomorrow per Melissa. Patient was speaking profanely about multiple staff members to another peer loudly in the hallway about his discontent. Attempted to calm the patient down and he went in to color with another peer. Plan: Pt. requires crisis stabilization. Patient continues to require a safe and supportive environment. Patient requires medication adjustments as determined by his MD. Will be discharged to the [facility] tomorrow.
[2022-06-05] MEDS: QUEtiapine 25mg tablet PO SCH (19:28)
[2022-06-05 19:48] VITALS: BP 125/93
--- NOTE | 2022-06-05 23:50 | NUR ---
Nursing Progress Note Problem: Pt admitted on 5150 for DTS/GD from [facility] at 0911. Pt endorses SI daily with a plan to crash his vehicle. Patient is irritable due to not getting on his previous medication. Patient has not slept except for 2.5 hours yesterday morning. Intervention: Maintained a safe and supportive environment, administered scheduled and PRN medications. Provided clear and simple instructions, encouraged going to group, provided active listening and positive encouragement, encouraged participation on the unit, provided redirection and clear boundaries. Response: The patient was sitting in bed avoiding conversation and irritated at not going to [facility] today. The patient talked about this displeasure and how everyone was lying to him. The pt apologized for speaking harshly but still seemed agitated and upset. This nurse left to let the pt calm down as he was growing more irritated speaking about the events from the day. The pt refused snack, took medications w/o complications. The pt spilled water on floor in room and started cursing, he asked for a towel and cleaned up the spill. The pt went to bed shortly after. Plan: Pt. requires crisis stabilization. pt. continues to require a safe and supportive environment. And pharmacological intervention.
--- NOTE | 2022-06-06 07:27 | NUR ---
Reassessment: Pt continues on Regular diet w/ mostly 100% intake of meals meeting needs at this time. LBM 06/05 receiving routine colace. No nutrition intervention implemented at this time, will continue to monitor. Recs: 1. Continue Regular diet as tolerated 2. Bowel care per rx 3. weekly wts Addendum: 06/06/22 at [address] Amended: Links added.
[2022-06-06] MEDS: ziprasidone 20mg capsule PO SCH (07:57)
[2022-06-06] MEDS: cloNIDine 0.1 mg tablet PO SCH (07:57)
[2022-06-06] MEDS: docusate sod 100mg capsule PO SCH (07:57)
[2022-06-06] MEDS: carBAMazepine 100mg chewable tablet PO SCH (07:58)
[2022-06-06] MEDS: cetirizine 10mg tablet PO SCH (07:58)
[2022-06-06 08:00] VITALS: BP 151/84
--- NOTE | 2022-06-06 10:09 | NUR ---
[facility] Received signed [facility] meds, [address] Aguilar, still waiting for signed meds order. Sent Dr. Aguilar another meds order & requested his signature. Melissa Bruce HARNESS BUILDER Addendum: 06/06/22 at 1011 by Melissa Bruce SS Amended: Links added.
--- NOTE | 2022-06-06 17:31 | NUR ---
Discharge Note: (1055) Received discharge orders for this patient from Dr. Aguilar. Reviewed discharge prescriptions from [facility]. Patient reported that he no longer wanted to go to [facility]. Patient spoke directly to Carolyn Product Introduction Manager, who then informed that patient had decided to discharge to the [facility]. Patient received his belongings from [facility]. Reviewed discharge prescriptions with the patient and follow up appointments with Dr. Aguilar at [facility]. Patient called his SO to pick him up. Patient was escorted out of the department at 1055 with his belongings and medications.
== END 2022-06-06 11:00 | disposition home or self-care (01) | DRG 885 ==
LOC: ADULT MH 09:27
PROVIDERS: ADMIT Psychiatry & Neurology Psychiatry; ATTEND Psychiatry & Neurology Psychiatry
DX: F31.81 Bipolar II disorder (principal); R45.851 Suicidal ideations; F60.9 Personality disorder, unspecified; K59.00 Constipation, unspecified; Z20.822 Contact with and (suspected) exposure to COVID-19; F10.10 Alcohol abuse, uncomplicated; F12.10 Cannabis abuse, uncomplicated; K21.9 Gastro-esophageal reflux disease without esophagitis; R09.81 Nasal congestion; G47.33 Obstructive sleep apnea (adult) (pediatric); Z81.8 Family history of other mental and behavioral disorders; Z82.49 Family history of ischemic heart disease and other diseases of the circulatory system; Z83.3 Family history of diabetes mellitus; Z86.711 Personal history of pulmonary embolism; Z88.8 Allergy status to other drugs, medicaments and biological substances; Z87.891 Personal history of nicotine dependence; Z82.3 Family history of stroke; R45.850 Homicidal ideations
CPT/HCPCS: 36415; 71045; 80061; 80156; 83036; 85025; 87081; 87811; Q0163

== ENCOUNTER 2023-04-10 21:17 | Emergency (ER) | payer MEDICARE, MEDICAID ==
[~2023-04-10] VITALS: Ht 177.8 cm; Wt 104.0 kg
[~2023-04-10 21:17] MED LIST changes: +CARB200T PO; -CARB200T8 PO; +CETI10TA14 PO; -CHOL20002 PO; +CLON0.1T2 PO; -DABI75CA3 PO; -DOCU-148 PO; +DOCU100C40 PO; -FLUO-1 PO; +QUET200T31 PO; +ZIPR20CA12 PO; -ZIPR80CA10 PO
[2023-04-10 21:36] LABS: BASOPHILS # (AUTO) 0.1 X10'3 (0-0.2); BASOPHILS % (AUTO) 1.3 % (0-1); EOSINOPHILS # (AUTO) 0.1 X10'3 (0-0.9); EOSINOPHILS % (AUTO) 1.8 % (0-6); HEMOGLOBIN 14.8 g/dl (14.0-17.9); LYMPHOCYTES % (AUTO) 24.7 % (21-51); MEAN CORPUSCULAR HEMOGLOBIN 30.1 PG (27.0-31.0); MEAN CORPUSCULAR HGB CONC 33.7 g/dL (33.0-36.5); MEAN CORPUSCULAR VOLUME 89.5 FL (78-98); MONOCYTES # (AUTO) 0.7 X10'3 (0-0.9); NEUTROPHILS # (AUTO) 5.2 X10'3 (1.8-7.7); NEUTROPHILS % (AUTO) 63.2 % (42-75); PLATELET COUNT 197 X10'3 (140-440); RED BLOOD COUNT 4.92 X10'6 (4.70-6.10); RED CELL DISTRIBUTION WIDTH 14.4 % (11.5-14.5); WHITE BLOOD COUNT 8.3 X10'3 (4.5-11.0)
[2023-04-10 21:48] LABS: ALANINE AMINOTRANSFERASE 22 U/L (12-78); ALBUMIN 3.4 G/DL (3.4-5.0); ALBUMIN/GLOBULIN RATIO 1.1 (1.1-1.5); ALKALINE PHOSPHATASE 94 IU/L (46-116); ANION GAP 8 (8-16); ASPARTATE AMINO TRANSFERASE 19 U/L (10-37); BILIRUBIN,TOTAL 0.3 MG/DL (0.1-1.0); BLOOD UREA NITROGEN 15 MG/DL (7-18); BUN/CREATININE RATIO 11.1 (10.0-20.0); CALCIUM 8.5 MG/DL (8.5-10.1); CHLORIDE 106 MMOL/L (99-107); CREATININE 1.35 MG/DL (0.60-1.10); GLUCOSE 94 MG/DL (70-104); POTASSIUM 3.6 MMOL/L (3.5-5.1); SODIUM 141 MMOL/L (135-145); TOTAL CARBON DIOXIDE 26.6 MMOL/L (24-32); TOTAL PROTEIN 6.5 G/DL (6.4-8.2); eGFR 54 ML/MIN
[2023-04-10 21:56] LABS: MAGNESIUM 1.9 MG/DL (1.5-2.4)
[2023-04-10 22:44] LABS: D-DIMER < 0.19 MG/L FEU (0-0.50)
[2023-04-10 22:45] VITALS: BP 132/87
== END 2023-04-10 23:06 | disposition home or self-care (01) ==
LOC: ER 21:19
DX: R07.89 Other chest pain (principal); F31.9 Bipolar disorder, unspecified; Z88.1 Allergy status to other antibiotic agents
CPT/HCPCS: 36415; 71045; 80053; 83735; 83880; 84484; 85025; 85379; 93005; 99285

== ENCOUNTER 2024-03-27 13:28 | Emergency (ER) | payer MEDICARE, MEDICAID | END 2024-03-27 15:10 | disposition left against medical advice (07) | LOC: ER 13:28 | DX: R07.9 Chest pain, unspecified (principal); Z53.21 Procedure and treatment not carried out due to patient leaving prior to being seen by health care provider | CPT/HCPCS: 93005 ==